=== PATIENT | female | born 1985 | race Caucasian/White ===

== ENCOUNTER 2017-07-06 22:12 | Emergency (ER) | payer OTHER ==
--- NOTE | 2017-07-06 22:54 | OBHP ---
Datetime: 07/06/2017 22:49 IP Adm Impression: , intrauterine ; No Active Labor IP Admit Plan: Observation/Evaluation; Discharge home Admit Comment, IP Provider: The patient is a 31-year-old 1 para 0 last menstrual period December 11 estimated due date October 15 estimated gestational age 29 weeks 4 days patient presents to labor an d delivery complaining of vaginal spotting. Patient denies any contractions aches of fluids reports g ood movement. Patient reports history of low-lying placenta. Past medical history none Past surgical history none None known drug allergies Social history denies alcohol tobacco use Review of systems patient denies headache chest pain shortness of breath palpitations nausea vomit ing constipation dysuria. Pathologies visibility musculoskeletal or neurological complaints Vital signs stable afebrile Physical exam see notes Intrauterine at 29+ weeks low-lying placenta Record review from Dr. Virk's office Placenta 1.5 cm from os External monitor Observation Pelvic Type - PN: Adequate Extremities - PN: Normal Abdomen - PN: Normal Back - PN: Normal Breast - PN: Normal Lungs - PN: Normal Heart - PN: Normal Thyroid - PN: Normal Neurologic - PN: Normal HEENT - PN: Normal General - PN: Normal FHR - Baseline A Provider: 145 Gestation - Est Wks by US: 29.0 EGA AdmitDate IP: 29.4 Vital Signs Provider: Reviewed IP Chief Complaint: Vaginal bleeding NICHD Decel Fetus A IP Provider: None Dilatation, Provider: 0 Effacement, Provider: 0 Station, Provider: -2 Genitourinary Exam: Normal DTRs - PN: Normal
[2017-07-06 22:57] VITALS: BMI 23.3
[2017-07-07 05:21] VITALS: BP 127/86; PULSE 87
== END 2017-07-07 00:45 | disposition home or self-care (01) ==
LOC: H.EROB2 22:12
DX: O26.853 Spotting complicating pregnancy, third trimester (principal); O47.03 False labor before 37 completed weeks of gestation, third trimester; Z3A.29 29 weeks gestation of pregnancy